=== PATIENT | male | born 1970 | race Caucasian/White ===

== ENCOUNTER 2019-08-13 15:18 | Emergency (ER) | payer OTHER, MEDICARE ==
[~2019-08-13] VITALS: Ht 193 cm; Wt 153.2 kg
[2019-08-13 15:28] VITALS: BP 115/59; TEMP 97.7
[2019-08-13] MEDS ORDERED: LIDODERM 5% PATC1 EA TP (17:04)
[2019-08-13 17:19] VITALS: PULSE 65
== END 2019-08-13 17:20 | disposition home or self-care (01) ==
LOC: COL.ER 15:18
DX: S29.012A Strain of muscle and tendon of back wall of thorax, initial encounter (principal); M54.2 Cervicalgia; G89.29 Other chronic pain; I10 Essential (primary) hypertension; M79.7 Fibromyalgia; J44.9 Chronic obstructive pulmonary disease, unspecified; X58.XXXA Exposure to other specified factors, initial encounter
CPT/HCPCS: J1885

== ENCOUNTER 2019-08-19 20:48 | Emergency (ER) | payer MEDICARE ==
[~2019-08-19] VITALS: Ht 193 cm; Wt 153.2 kg
[~2019-08-19 20:48] MED LIST: LIDODERM 5% PATC1 EA TP
[2019-08-19] MEDS ORDERED: PERCOCET 325 MG1 TAB PO ×2 (21:21→22:48)
[2019-08-19 22:50] VITALS: BP 124/75; PULSE 75; TEMP 97.3
== END 2019-08-19 22:50 | disposition home or self-care (01) ==
LOC: COL.ER 20:48
DX: S13.4XXA Sprain of ligaments of cervical spine, initial encounter (principal); S46.911A Strain of unspecified muscle, fascia and tendon at shoulder and upper arm level, right arm, initial encounter; S76.011A Strain of muscle, fascia and tendon of right hip, initial encounter; M79.7 Fibromyalgia; I10 Essential (primary) hypertension; J44.9 Chronic obstructive pulmonary disease, unspecified; R40.2412 Glasgow coma scale score 13-15, at arrival to emergency department; W01.198A Fall on same level from slipping, tripping and stumbling with subsequent striking against other object, initial encounter; Y92.410 Unspecified street and highway as the place of occurrence of the external cause
CPT/HCPCS: J1170